=== PATIENT | male | born 1930 | race African-American/Black ===

== ENCOUNTER 2017-07-08 20:34 | Inpatient (IN) | payer MEDICARE, MEDICAID ==
[~2017-07-08] VITALS: Ht 172.7 cm; Wt 51.7 kg
[~2017-07-08 20:34] MED LIST: ASCOL PO; BISA-81 RC; CARB1TAB61 PO; FURO20TA4 PO; LACT10SO6 MT; MULT-1146 PO; NEUTRA PHOS PO; POLY255P2 PO; PRED5TAB48 PO; ZINC220C6 PO; eliquis PO
[2017-07-08] MEDS ORDERED: SODIUM CHLORIDE 0.9% 1000ML BAG (SEPSIS BOLUS) IV ONE (21:15)
[2017-07-08 21:38] LABS: HEMATOCRIT. 33.2 % (42.0-52.0); HEMOGLOBIN. 10.9 g/dL (14.0-18.0); MEAN CORPUSCULAR HEMOGLOBIN 32.8 pg (28.0-32.0); MEAN CORPUSCULAR VOLUME 99.3 fL (80.0-94.0); MEAN PLATELET VOLUME 8.2 fl (7.4-10.4); PLATELET 233 x1000/uL (130-400); RED BLOOD CELL COUNT 3.34 mill/uL (4.7-6.1); RED CELL DISTRIBUTION WIDTH 14.5 % (11.6-14.6)
[2017-07-08 21:45] LABS: INR 1.2; PROTHROMBIN TIME 12.2 sec (9.4-11.6)
[2017-07-08 21:55] LABS: CARBON DIOXIDE 37 mEq/L (21-32); CHLORIDE 96 mEq/L (98-107); TROPONIN I 0.04 ng/mL (0.00-0.04)
[2017-07-08 22:12] LABS: PLATELET ESTIMATE NORMAL
[2017-07-08] MEDS ORDERED: KCL 10MEQ/50ML PREMIX 50 ML IV SCH (22:39)
[2017-07-08] MEDS ORDERED: LEVOFLOXACIN 750MG PREMIX 150 ML IV SCH (22:40)
[2017-07-08] MEDS ORDERED: POTASSIUM CHLORIDE 20MEQ TABLET SR PO SCH (22:40)
[2017-07-08] MEDS ORDERED: POTASSIUM CHLORIDE 20MEQ/PACKET PO ONE (23:30)
[2017-07-09] VITALS (11 sets, daily range): BP systolic 95–136; BP diastolic 50–91
[2017-07-09] MEDS ORDERED: FUROSEMIDE 40MG/4ML VIAL IVP SCH (05:15)
[2017-07-09] MEDS ORDERED: MORPHINE SULFATE 4 MG/ML CPJ (NOT FOR IM USE) IV PRN (05:15)
[2017-07-09] MEDS ORDERED: IPRATROPIUM/ALBUTEROL 0.5-3(2.5)MG/3ML NEB HHN PRN (05:30)
[2017-07-09] MEDS ORDERED: LEVOFLOXACIN 750MG PREMIX 150 ML IV SCH (06:00)
[2017-07-09] MEDS: SODIUM CHL 0.45% + KCL 20MEQ/L 1,000 ML IV SCH (06:43)
[2017-07-09] MEDS: IPRATROPIUM/ALBUTEROL 0.5-3(2.5)MG/3ML NEB HHN SCH ×4 (08:04→20:45)
[2017-07-09 09:36] LABS: HEMATOCRIT. 37.5 % (42.0-52.0); HEMOGLOBIN. 12.5 g/dL (14.0-18.0); MEAN CORPUSCULAR HEMOGLOBIN 33.1 pg (28.0-32.0); MEAN CORPUSCULAR VOLUME 99.1 fL (80.0-94.0); PLATELET 246 x1000/uL (130-400); RED BLOOD CELL COUNT 3.78 mill/uL (4.7-6.1); RED CELL DISTRIBUTION WIDTH 14.4 % (11.6-14.6)
[2017-07-09 10:08] LABS: BG BASE EXCESS 10.6 mmol/L (-2.0-2.0); BG CARBOXYHEMOGLOBIN 0.4 % (0.5-1.5); BG DEOXYHEMOGLOBIN 1.1 % (0.0-5.0); BG FRACTION INSPIRED OXYGEN 28; BG HCO3 ACT 34.9 mmol/L (22.0-26.0); BG METHEMOGLOBIN 0.3 % (0.0-1.5); BG OXYGEN SATURATION 98.9 % (92.0-98.5); BG OXYHEMOGLOBIN 98.2 % (94.0-97.0); BG PCO2 45.4 mmHg (35.0-45.0); BG PH 7.504 (7.350-7.450); BG PO2 139.4 mmHg (75.0-100.0); BG SAMPLE SITE RIGHT BRACHIAL; BG TOTAL HEMOGLOBIN 12.4 g/dL (12.0-18.0); BG VENT MODE NASAL CANNULA
[2017-07-09 10:36] LABS: CARBON DIOXIDE 36 mEq/L (21-32); CHLORIDE 97 mEq/L (98-107)
[2017-07-09] MEDS ORDERED: DEXT 5% WATER + KCL 40MEQ/L 1,000 ML IV SCH (11:00)
[2017-07-09] MEDS ORDERED: POTASSIUM CHLORIDE 20MEQ TABLET SR PO NR (12:40)
[2017-07-09] MEDS: POTASSIUM CHLORIDE INJ 40 MEQ in DEXT 5% WATER 250 ML IV SCH ×2 (13:16→22:54)
[2017-07-09] MEDS ORDERED: BISACODYL 5MG TABLET PO PRN (15:30)
[2017-07-09] MEDS ORDERED: CEFTRIAXONE 1 G PREMIX 50 ML IV SCH (16:30)
[2017-07-09] MEDS: ACETYLCYSTEINE 100MG/ML 10% VIAL 4ML INH SCH (17:13)
[2017-07-09] MEDS: CARBIDOPA/LEVODOPA 25/100MG TABLET PO SCH ×2 (17:25→22:53)
[2017-07-09] MEDS: LEVOFLOXACIN 500MG PREMIX 100 ML IV SCH (17:25)
[2017-07-10] VITALS (12 sets, daily range): BP systolic 97–128; BP diastolic 43–66
[2017-07-10] MEDS: IPRATROPIUM/ALBUTEROL 0.5-3(2.5)MG/3ML NEB HHN SCH ×6 (00:30→21:16)
[2017-07-10] MEDS: ACETYLCYSTEINE 100MG/ML 10% VIAL 4ML INH SCH ×3 (00:31→15:28)
[2017-07-10] MEDS: CARBIDOPA/LEVODOPA 25/100MG TABLET PO SCH ×4 (06:00→23:46)
[2017-07-10] MEDS: ZINC SULFATE 220 MG ( 50 ) CAPSULE PO SCH (08:05)
[2017-07-10] MEDS: ASCORBIC ACID 500 MG TABLET PO SCH (08:06)
[2017-07-10] MEDS: APIXABAN 2.5 MG TABLET PO SCH ×2 (08:06→17:12)
[2017-07-10] MEDS ORDERED: FUROSEMIDE 20MG TABLET PO SCH (09:00)
[2017-07-10] MEDS ORDERED: APIXABAN 2.5 MG TABLET PO SCH (09:00)
[2017-07-10 09:09] LABS: BG BASE EXCESS 1.7 mmol/L (-2.0-2.0); BG CARBOXYHEMOGLOBIN 0.3 % (0.5-1.5); BG FRACTION INSPIRED OXYGEN 32; BG HCO3 ACT 24.9 mmol/L (22.0-26.0); BG METHEMOGLOBIN 0.3 % (0.0-1.5); BG OXYHEMOGLOBIN 98.4 % (94.0-97.0); BG PCO2 33.7 mmHg (35.0-45.0); BG PH 7.486 (7.350-7.450); BG PO2 172.7 mmHg (75.0-100.0); BG SAMPLE SITE RIGHT BRACHIAL; BG TOTAL HEMOGLOBIN 10.1 g/dL (12.0-18.0); BG VENT MODE NASAL CANNULA
[2017-07-10] MEDS ORDERED: CEFTRIAXONE 1,000 MG in DEXTROSE 5% WATER 50 ML IV SCH (10:15)
[2017-07-10 10:16] LABS: PLATELET ESTIMATE NORMAL
[2017-07-10 14:20] LABS: TRIOIODOTHYRONINE TOTAL 0.44 ng/ml (0.60-1.81)
[2017-07-10 14:31] LABS: HEPATITIS B SURFACE ANTIGEN NEGATIVE
[2017-07-10 14:51] LABS: CARBON DIOXIDE 34 mEq/L (21-32); CHLORIDE 99 mEq/L (98-107); HDL CHOLESTEROL 45 mg/dL (40-59); LDL CHOLESTEROL 81 mg/dL (5-100); PREALBUMIN 7.2 mg/dL (20.0-40.0); T4 FREE 2.16 ng/dL (0.76-1.46); TROPONIN I < 0.02 ng/mL (0.00-0.04)
[2017-07-10 14:59] LABS: HEPATITIS B CORE AB IGM NEGATIVE
[2017-07-10 15:00] LABS: HEPATITIS A AB IGM NEGATIVE (NEGATIVE)
[2017-07-10] MEDS: LEVOFLOXACIN 500MG PREMIX 100 ML IV SCH (16:04)
[2017-07-10] MEDS: SODIUM CHL 0.45% + KCL 20MEQ/L 1,000 ML IV SCH (16:09)
[2017-07-10] MEDS: CEFTRIAXONE 1,000 MG in DEXTROSE 5% WATER 50 ML IV SCH (17:13)
[2017-07-10] MEDS ORDERED: POTASSIUM CHLORIDE 20MEQ TABLET SR PO SCH (19:30)
[2017-07-11] VITALS (9 sets, daily range): BP systolic 95–143; BP diastolic 53–76
[2017-07-11] MEDS: IPRATROPIUM/ALBUTEROL 0.5-3(2.5)MG/3ML NEB HHN SCH ×7 (01:11→23:56)
[2017-07-11] MEDS: ACETYLCYSTEINE 100MG/ML 10% VIAL 4ML INH SCH ×4 (01:12→23:56)
[2017-07-11] MEDS: CARBIDOPA/LEVODOPA 25/100MG TABLET PO SCH ×4 (05:00→23:01)
[2017-07-11 06:36] LABS: BASOPHILS % 0.2 % (0.0-2.0); EOSINOPHILS % 0.4 % (0.0-5.0); HEMATOCRIT. 32.7 % (42.0-52.0); HEMOGLOBIN. 11.2 g/dL (14.0-18.0); LYMPHOCYTES % 12.5 % (20.0-50.0); MEAN CORPUSCULAR HEMOGLOBIN 33.8 pg (28.0-32.0); MEAN CORPUSCULAR VOLUME 98.2 fL (80.0-94.0); MEAN PLATELET VOLUME 8.3 fl (7.4-10.4); MONOCYTES % 8.2 % (2.0-8.0); NEUTROPHILS % 78.7 % (40.0-76.0); PLATELET 218 x1000/uL (130-400); RED BLOOD CELL COUNT 3.33 mill/uL (4.7-6.1)
[2017-07-11 08:06] LABS: BG BASE EXCESS 9.2 mmol/L (-2.0-2.0); BG DEOXYHEMOGLOBIN 3.9 % (0.0-5.0); BG FRACTION INSPIRED OXYGEN 21; BG HCO3 ACT 33.3 mmol/L (22.0-26.0); BG METHEMOGLOBIN 0.2 % (0.0-1.5); BG OXYGEN SATURATION 96.1 % (92.0-98.5); BG OXYHEMOGLOBIN 95.9 % (94.0-97.0); BG PCO2 43.7 mmHg (35.0-45.0); BG PO2 79.1 mmHg (75.0-100.0); BG SAMPLE SITE RIGHT BRACHIAL; BG TOTAL HEMOGLOBIN 11.5 g/dL (12.0-18.0); BG VENT MODE ROOM AIR
[2017-07-11] MEDS: ZINC SULFATE 220 MG ( 50 ) CAPSULE PO SCH (09:06)
[2017-07-11] MEDS: ASCORBIC ACID 500 MG TABLET PO SCH (09:06)
[2017-07-11] MEDS: APIXABAN 2.5 MG TABLET PO SCH ×2 (09:06→18:16)
[2017-07-11] MEDS: MICONAZOLE NITRATE 2% OINT 71GM TOP SCH ×2 (09:06→21:35)
[2017-07-11 09:37] LABS: CHLORIDE 101 mEq/L (98-107)
[2017-07-11 09:51] LABS: CARBON DIOXIDE 31 mEq/L (21-32)
[2017-07-11] MEDS ORDERED: POTASSIUM CHLORIDE 20MEQ TABLET SR PO NR (10:30)
[2017-07-11] MEDS: FUROSEMIDE 20MG TABLET PO SCH (12:52)
[2017-07-11] MEDS: CEFTRIAXONE 1,000 MG in DEXTROSE 5% WATER 50 ML IV SCH (17:52)
[2017-07-11] MEDS: LEVOFLOXACIN 250MG PREMIX 50 ML IV SCH (17:53)
[2017-07-12] VITALS (20 sets, daily range): BP systolic 90–144; BP diastolic 50–87
[2017-07-12] MEDS: SODIUM CHL 0.45% + KCL 20MEQ/L 1,000 ML IV SCH (00:55)
[2017-07-12] MEDS: IPRATROPIUM/ALBUTEROL 0.5-3(2.5)MG/3ML NEB HHN SCH ×5 (03:53→21:06)
[2017-07-12 05:43] LABS: BASOPHILS % 0.3 % (0.0-2.0); EOSINOPHILS % 1.3 % (0.0-5.0); HEMATOCRIT. 32.9 % (42.0-52.0); HEMOGLOBIN. 10.9 g/dL (14.0-18.0); LYMPHOCYTES % 18.3 % (20.0-50.0); MEAN CORPUSCULAR HEMOGLOBIN 32.8 pg (28.0-32.0); MEAN CORPUSCULAR VOLUME 98.7 fL (80.0-94.0); MEAN PLATELET VOLUME 8.5 fl (7.4-10.4); MONOCYTES % 11.1 % (2.0-8.0); PLATELET 212 x1000/uL (130-400); RED BLOOD CELL COUNT 3.34 mill/uL (4.7-6.1); RED CELL DISTRIBUTION WIDTH 14.2 % (11.6-14.6)
[2017-07-12] MEDS: CARBIDOPA/LEVODOPA 25/100MG TABLET PO SCH ×3 (05:43→18:58)
[2017-07-12 05:46] LABS: CHLORIDE 101 mEq/L (98-107)
[2017-07-12 05:50] LABS: CARBON DIOXIDE 34 mEq/L (21-32)
[2017-07-12] MEDS ORDERED: LIDOCAINE HCL 1% 20ML VIAL (Pyxis) INJ ONE (07:38)
[2017-07-12] MEDS: ZINC SULFATE 220 MG ( 50 ) CAPSULE PO SCH (08:59)
[2017-07-12] MEDS: ASCORBIC ACID 500 MG TABLET PO SCH (08:59)
[2017-07-12] MEDS: FUROSEMIDE 20MG TABLET PO SCH (08:59)
[2017-07-12] MEDS: APIXABAN 2.5 MG TABLET PO SCH ×2 (08:59→18:58)
[2017-07-12] MEDS: MICONAZOLE NITRATE 2% OINT 71GM TOP SCH ×2 (09:00→21:11)
[2017-07-12] MEDS: ACETYLCYSTEINE 100MG/ML 10% VIAL 4ML INH SCH ×2 (09:49→16:21)
[2017-07-12] MEDS ORDERED: POTASSIUM CHLORIDE 20MEQ TABLET SR PO NR (10:00)
[2017-07-12] MEDS: CEFTRIAXONE 1,000 MG in DEXTROSE 5% WATER 50 ML IV SCH (19:33)
[2017-07-12] MEDS: LEVOFLOXACIN 250MG PREMIX 50 ML IV SCH (21:11)
[2017-07-13] VITALS (15 sets, daily range): BP systolic 93–142; BP diastolic 47–76
[2017-07-13] MEDS: IPRATROPIUM/ALBUTEROL 0.5-3(2.5)MG/3ML NEB HHN SCH ×6 (00:30→20:13)
[2017-07-13] MEDS: ACETYLCYSTEINE 100MG/ML 10% VIAL 4ML INH SCH ×3 (00:31→16:49)
[2017-07-13] MEDS: CARBIDOPA/LEVODOPA 25/100MG TABLET PO SCH ×5 (00:54→23:38)
[2017-07-13] MEDS: ASCORBIC ACID 500 MG TABLET PO SCH (09:05)
[2017-07-13] MEDS: APIXABAN 2.5 MG TABLET PO SCH ×2 (09:05→17:44)
[2017-07-13] MEDS: FUROSEMIDE 20MG TABLET PO SCH (09:05)
[2017-07-13] MEDS: ZINC SULFATE 220 MG ( 50 ) CAPSULE PO SCH (09:06)
[2017-07-13] MEDS: MICONAZOLE NITRATE 2% OINT 71GM TOP SCH ×2 (09:06→21:16)
[2017-07-13] MEDS ORDERED: POTASSIUM CHLORIDE 20MEQ TABLET SR PO NR (09:45)
[2017-07-13] MEDS: SODIUM CHL 0.45% + KCL 20MEQ/L 1,000 ML IV SCH ×2 (12:13→17:43)
[2017-07-13] MEDS: MEGESTROL ACETATE 400 MG/10 ML UDC PO SCH (12:35)
[2017-07-13 13:10] LABS: 25-HYDROXY VITAMIN D3 23 ng/mL (.)
[2017-07-13] MEDS ORDERED: CEFTRIAXONE 1 G PREMIX 50 ML IV SCH (16:30)
[2017-07-13] MEDS: LEVOFLOXACIN 250MG PREMIX 50 ML IV SCH (17:44)
[2017-07-13] MEDS ORDERED: CEFTRIAXONE 1,000 MG in DEXTROSE 5% WATER 50 ML IV SCH (21:00)
[2017-07-14] VITALS (9 sets, daily range): BP systolic 90–131; BP diastolic 50–79
[2017-07-14] MEDS: ACETYLCYSTEINE 100MG/ML 10% VIAL 4ML INH SCH ×2 (00:39→08:53)
[2017-07-14] MEDS: IPRATROPIUM/ALBUTEROL 0.5-3(2.5)MG/3ML NEB HHN SCH ×4 (00:39→12:45)
[2017-07-14] MEDS: CARBIDOPA/LEVODOPA 25/100MG TABLET PO SCH ×2 (06:21→12:41)
[2017-07-14 06:42] LABS: CARBON DIOXIDE 30 mEq/L (21-32); CHLORIDE 103 mEq/L (98-107)
[2017-07-14 06:44] LABS: BASOPHILS % 0.3 % (0.0-2.0); EOSINOPHILS % 2.5 % (0.0-5.0); HEMATOCRIT 34.5 % (42.0-52.0); HEMATOCRIT. 34.5 % (42.0-52.0); HEMOGLOBIN 11.6 g/dL (14.0-18.0); HEMOGLOBIN. 11.6 g/dL (14.0-18.0); LYMPHOCYTES % 18.6 % (20.0-50.0); MEAN CORPUSCULAR HEMOGLOBIN 33.3 pg (28.0-32.0); MEAN PLATELET VOLUME 8.3 fl (7.4-10.4); MONOCYTES % 7.2 % (2.0-8.0); NEUTROPHILS % 71.4 % (40.0-76.0); PLATELET 214 x1000/uL (130-400); RED BLOOD CELL COUNT 3.48 mill/uL (4.7-6.1); RED CELL DISTRIBUTION WIDTH 14.5 % (11.6-14.6)
[2017-07-14] MEDS: MEGESTROL ACETATE 400 MG/10 ML UDC PO SCH (08:33)
[2017-07-14] MEDS: APIXABAN 2.5 MG TABLET PO SCH (08:35)
[2017-07-14] MEDS: ASCORBIC ACID 500 MG TABLET PO SCH (08:35)
[2017-07-14] MEDS: ZINC SULFATE 220 MG ( 50 ) CAPSULE PO SCH (08:35)
[2017-07-14] MEDS: FUROSEMIDE 20MG TABLET PO SCH (08:36)
[2017-07-14] MEDS ORDERED: POTASSIUM CHLORIDE 20MEQ TABLET SR PO NR (09:45)
[2017-07-14] MEDS: MICONAZOLE NITRATE 2% OINT 71GM TOP SCH (10:38)
[2017-07-14] MEDS ORDERED: CEFTRIAXONE 1,000 MG in CEFTRIAXONE 1 G PREMIX 50 ML IV SCH (21:00)
== END 2017-07-14 14:47 | DRG 871 ==
LOC: ER 21:09 → 5WST 23:00 → EDBEDREQTM 23:02 → EDBEDREQSVC 23:02 → EDBEDREQ 23:02 → ENRESERV 07-09 03:23 → 3WST 07-09 11:48
PROVIDERS: ADMIT Internal Medicine Pulmonary Disease; ATTEND Internal Medicine Pulmonary Disease
PROC: 5A09357 Assistance with Respiratory Ventilation, Less than 24 Consecutive Hours, Continuous Positive Airway Pressure (ICD-10-PCS; 2017-07-09)
PROC: 05H933Z Insertion of Infusion Device into Right Brachial Vein, Percutaneous Approach (ICD-10-PCS; principal; 2017-07-12)
PROC: B54MZZA Ultrasonography of Right Upper Extremity Veins, Guidance (ICD-10-PCS; 2017-07-12)
DX: A41.9 Sepsis, unspecified organism (principal); J18.9 Pneumonia, unspecified organism; I26.99 Other pulmonary embolism without acute cor pulmonale; E43 Unspecified severe protein-calorie malnutrition; I50.31 Acute diastolic (congestive) heart failure; J96.92 Respiratory failure, unspecified with hypercapnia; J96.91 Respiratory failure, unspecified with hypoxia; I42.9 Cardiomyopathy, unspecified; E83.51 Hypocalcemia; E44.0 Moderate protein-calorie malnutrition; G20 Parkinson's disease; I50.33 Acute on chronic diastolic (congestive) heart failure; J44.0 Chronic obstructive pulmonary disease with (acute) lower respiratory infection; J44.1 Chronic obstructive pulmonary disease with (acute) exacerbation; I69.354 Hemiplegia and hemiparesis following cerebral infarction affecting left non-dominant side; Z68.1 Body mass index [BMI] 19.9 or less, adult; D63.8 Anemia in other chronic diseases classified elsewhere; F03.90 Unspecified dementia, unspecified severity, without behavioral disturbance, psychotic disturbance, mood disturbance, and anxiety; M19.90 Unspecified osteoarthritis, unspecified site; Z79.01 Long term (current) use of anticoagulants; E87.6 Hypokalemia; Z86.711 Personal history of pulmonary embolism; Z98.2 Presence of cerebrospinal fluid drainage device; Z99.81 Dependence on supplemental oxygen; Z79.899 Other long term (current) drug therapy
CPT/HCPCS: 36415; 36569; 36600; 71045; 76937; 80048; 80053; 80061; 82306; 82375; 82805; 83605; 83690; 83735; 83880; 84134; 84153; 84439; 84443; 84480; 84484; 85025; 85027; 85379; 85610; 86705; 86709; 86803; 87040; 87340; 87804; 93005; 93308; 93970; 94640; 94660; 94664; 96361; 96365; 97163; 97167; 99285; A6261; C1725; C1769; J0696; J1940; J1956; J3480; J3490; J7030; J7040; J7060; J7608; J7620; A4315

== ENCOUNTER 2018-09-02 12:05 | Inpatient (IN) | payer MEDICARE, MEDICAID ==
[~2018-09-02] VITALS: Ht 167.6 cm; Wt 58.3 kg
[~2018-09-02 12:05] MED LIST changes: -FURO20TA4 PO; -NEUTRA PHOS PO; -PRED5TAB48 PO; -ZINC220C6 PO
[2018-09-02] MEDS ORDERED: SODIUM CHLORIDE 0.9% 1000ML BAG (SEPSIS BOLUS) IV ONE (14:30)
[2018-09-02 14:53] LABS: HEMATOCRIT. 39.2 % (42.0-52.0); HEMOGLOBIN. 12.9 g/dL (14.0-18.0); MEAN CORPUSCULAR HEMOGLOBIN 33.7 pg (28.0-32.0); MEAN CORPUSCULAR VOLUME 102.5 fL (80.0-94.0); MEAN PLATELET VOLUME 10.5 fl (7.4-10.4); PLATELET 131 x1000/uL (130-400); RED BLOOD CELL COUNT 3.82 mill/uL (4.7-6.1); RED CELL DISTRIBUTION WIDTH 14.7 % (11.6-14.6)
[2018-09-02 14:58] LABS: CHLORIDE 115 mEq/L (98-107)
[2018-09-02 15:24] LABS: PLATELET ESTIMATE NORMAL
[2018-09-02] MEDS ORDERED: LEVOFLOXACIN 250MG PREMIX 50 ML IV ONE (16:30)
[2018-09-02] MEDS ORDERED: SODIUM CHL 0.9% + KCL 20MEQ/L 1,000 ML IV ONE (16:45)
[2018-09-02 17:14] LABS: CLARITY URINE CLOUDY (CLEAR); COLOR URINE YELLOW (YELLOW); KETONES URINE NEGATIVE (NEGATIVE); LEUKOCYTE ESTERASE URINE 2+ (NEGATIVE); NITRITE URINE POSITIVE (NEGATIVE); OCCULT BLOOD URINE 2+ (NEGATIVE); PH URINE 5.5 (4.5-8.0); PROTEIN URINE 2+ (NEGATIVE); SPECIFIC GRAVITY URINE 1.014 (1.005-1.030)
[2018-09-02] MEDS: AZITHROMYCIN 500 MG in DEXT 5% WATER 250 ML IV SCH (17:43)
[2018-09-03] MEDS ORDERED: SODIUM CHL 0.9% + KCL 20MEQ/L 1,000 ML IV ONE (00:30)
[2018-09-03] MEDS: IPRATROPIUM/ALBUTEROL 0.5-3(2.5)MG/3ML NEB HHN SCH ×2 (03:34→21:38)
[2018-09-03 10:30] LABS: HEMATOCRIT 36.9 % (42.0-52.0); HEMOGLOBIN 12.2 g/dL (14.0-18.0); MEAN CORPUSCULAR HEMOGLOBIN 34.1 pg (28.0-32.0); MEAN CORPUSCULAR VOLUME 103.1 fL (80.0-94.0); PLATELET 116 x1000/uL (130-400); RED BLOOD CELL COUNT 3.58 mill/uL (4.7-6.1); RED CELL DISTRIBUTION WIDTH 15.2 % (11.6-14.6)
[2018-09-03 10:45] LABS: CHLORIDE 130 mEq/L (98-107)
[2018-09-03] MEDS ORDERED: LEVOFLOXACIN 250MG PREMIX 50 ML IV SCH ×2 (14:00→21:30)
[2018-09-03] MEDS: DEXT 5%/0.45% NACL KCL 20MEQ/L 1,000 ML IV SCH ×2 (14:00→21:54)
[2018-09-03] MEDS: AZITHROMYCIN 500 MG in DEXT 5% WATER 250 ML IV SCH (16:30)
[2018-09-03 20:00] VITALS: BP 124/71
[2018-09-03 20:30] VITALS: BP 124/71
[2018-09-03] MEDS ORDERED: ACETAMINOPHEN 325MG TABLET PO PRN (21:45)
[2018-09-03] MEDS ORDERED: POTASSIUM CHLORIDE 20MEQ TABLET SR PO NR (21:53)
[2018-09-03 22:00] VITALS: BP 119/74
[2018-09-03] MEDS: CARBIDOPA/LEVODOPA 25/100MG TABLET CR PO SCH (22:58)
[2018-09-04] VITALS (12 sets, daily range): BP systolic 98–134; BP diastolic 52–72
[2018-09-04] MEDS: IPRATROPIUM/ALBUTEROL 0.5-3(2.5)MG/3ML NEB HHN SCH ×7 (00:46→23:49)
[2018-09-04] MEDS: CARBIDOPA/LEVODOPA 25/100MG TABLET CR PO SCH ×4 (04:04→20:51)
[2018-09-04 06:05] LABS: CHLORIDE 131 mEq/L (98-107)
[2018-09-04 06:09] LABS: HEMATOCRIT. 34.7 % (42.0-52.0); HEMOGLOBIN. 11.7 g/dL (14.0-18.0); PLATELET 125 x1000/uL (130-400); RED BLOOD CELL COUNT 3.43 mill/uL (4.7-6.1); RED CELL DISTRIBUTION WIDTH 15.3 % (11.6-14.6)
[2018-09-04 06:12] LABS: PHOSPHORUS 1.4 mg/dL (2.5-4.9)
[2018-09-04] MEDS: ASCORBIC ACID 500 MG TABLET PO SCH (08:20)
[2018-09-04] MEDS: POTASSIUM CHLORIDE 20MEQ TABLET SR PO SCH ×4 (08:20→20:52)
[2018-09-04] MEDS: MULTIVITAMINS,THER W-MINERALS TABLET PO SCH (08:20)
[2018-09-04] MEDS: ENOXAPARIN 30MG/0.3ML SYR SUBCUT SCH (08:21)
[2018-09-04] MEDS: DEXT 5%/0.45% NACL KCL 20MEQ/L 1,000 ML IV SCH (08:27)
[2018-09-04] MEDS ORDERED: PNEUMOCOCCAL 23-VAL P-SAC VAC 0.5 ML IM ONE (10:00)
[2018-09-04] MEDS ORDERED: INFLUENZA VIRUS VACCINE(AFLURIA) 0.5ML SYR IM ONE (10:00)
[2018-09-04] MEDS: DEXT 5% WATER + KCL 20MEQ/L 1,000 ML IV SCH (10:01)
[2018-09-04] MEDS ORDERED: POTASSIUM PHOS,M-BASIC-D-BASIC 20 MMOL in DEXT 5% WATER 243.3333 ML IV SCH (11:00)
[2018-09-04] MEDS ORDERED: PIPERACILLIN/TAZ 2.25G PREMIX 50 ML IV SCH (11:00)
[2018-09-04] MEDS ORDERED: DIATR MEGLU/DIATRIZOATE SOLN 30ML PO SCH (13:00)
[2018-09-04 15:26] LABS: NUCLEATED RED BLOOD CELLS 1 /100 WBC
[2018-09-04 15:27] LABS: PLATELET ESTIMATE SLIGHTLY DECREASED
[2018-09-04] MEDS ORDERED: DIATR MEGLU/DIATRIZOATE SOLN 120ML ONE (16:59)
[2018-09-04] MEDS: AMPICILLIN SOD/SULBACTAM NA 3 G in SODIUM CHLORIDE 0.9% 100 ML IV SCH (20:52)
[2018-09-05] VITALS (16 sets, daily range): BP systolic 92–131; BP diastolic 46–69
[2018-09-05] MEDS: DEXT 5% WATER + KCL 20MEQ/L 1,000 ML IV SCH ×2 (02:35→13:40)
[2018-09-05] MEDS: CARBIDOPA/LEVODOPA 25/100MG TABLET CR PO SCH ×3 (03:58→16:39)
[2018-09-05] MEDS: IPRATROPIUM/ALBUTEROL 0.5-3(2.5)MG/3ML NEB HHN SCH ×6 (04:09→23:55)
[2018-09-05] MEDS: AMPICILLIN SOD/SULBACTAM NA 3 G in SODIUM CHLORIDE 0.9% 100 ML IV SCH ×2 (06:17→14:00)
[2018-09-05 06:23] LABS: CHLORIDE 132 mEq/L (98-107)
[2018-09-05 06:37] LABS: HEMATOCRIT. 32.9 % (42.0-52.0); HEMOGLOBIN. 10.9 g/dL (14.0-18.0); MEAN CORPUSCULAR HEMOGLOBIN 33.8 pg (28.0-32.0); MEAN CORPUSCULAR VOLUME 102.4 fL (80.0-94.0); MEAN PLATELET VOLUME 10.4 fl (7.4-10.4); PLATELET 114 x1000/uL (130-400); RED BLOOD CELL COUNT 3.22 mill/uL (4.7-6.1)
[2018-09-05 06:41] LABS: PHOSPHORUS 2.2 mg/dL (2.5-4.9)
[2018-09-05] MEDS: ASCORBIC ACID 500 MG TABLET PO SCH (09:56)
[2018-09-05] MEDS: MULTIVITAMINS,THER W-MINERALS TABLET PO SCH (09:56)
[2018-09-05] MEDS: POTASSIUM CHLORIDE 20MEQ TABLET SR PO SCH ×3 (09:56→16:43)
[2018-09-05] MEDS: ENOXAPARIN 30MG/0.3ML SYR SUBCUT SCH (09:56)
[2018-09-05] MEDS ORDERED: POTASSIUM PHOS,M-BASIC-D-BASIC 20 MMOL in DEXT 5% WATER 243.3333 ML IV NR (11:00)
[2018-09-05 13:59] LABS: ATYPICAL LYMPHOCYTES 1
[2018-09-05 14:00] LABS: PLATELET ESTIMATE SLIGHTLY DECREASED
[2018-09-06] VITALS (18 sets, daily range): BP systolic 99–140; BP diastolic 47–74
[2018-09-06] MEDS: CARBIDOPA/LEVODOPA 25/100MG TABLET CR PO SCH ×2 (01:15→04:00)
[2018-09-06] MEDS: AMPICILLIN SOD/SULBACTAM NA 3 G in SODIUM CHLORIDE 0.9% 100 ML IV SCH ×3 (01:33→13:44)
[2018-09-06] MEDS: IPRATROPIUM/ALBUTEROL 0.5-3(2.5)MG/3ML NEB HHN SCH ×5 (03:33→20:10)
[2018-09-06] MEDS: DEXT 5% WATER + KCL 20MEQ/L 1,000 ML IV SCH ×2 (03:55→18:16)
[2018-09-06 06:56] LABS: HEMATOCRIT. 31.1 % (42.0-52.0); HEMOGLOBIN. 10.4 g/dL (14.0-18.0); MEAN CORPUSCULAR HEMOGLOBIN 33.8 pg (28.0-32.0); MEAN CORPUSCULAR VOLUME 101.4 fL (80.0-94.0); MEAN PLATELET VOLUME 10.7 fl (7.4-10.4); PLATELET 113 x1000/uL (130-400); RED BLOOD CELL COUNT 3.07 mill/uL (4.7-6.1); RED CELL DISTRIBUTION WIDTH 15.7 % (11.6-14.6)
[2018-09-06 07:07] LABS: CHLORIDE 128 mEq/L (98-107)
[2018-09-06 07:12] LABS: PHOSPHORUS 1.9 mg/dL (2.5-4.9)
[2018-09-06] MEDS: MULTIVITAMINS,THER W-MINERALS TABLET PO SCH (08:51)
[2018-09-06] MEDS: ASCORBIC ACID 500 MG TABLET PO SCH (08:51)
[2018-09-06] MEDS: POTASSIUM CHLORIDE 20MEQ/PACKET PO SCH ×3 (08:54→17:12)
[2018-09-06] MEDS: ENOXAPARIN 30MG/0.3ML SYR SUBCUT SCH (09:14)
[2018-09-06] MEDS ORDERED: POTASSIUM PHOS,M-BASIC-D-BASIC 20 MMOL in DEXT 5% WATER 250 ML IV SCH (11:30)
[2018-09-06] MEDS: CARBIDOPA/LEVODOPA 25/100MG TABLET PO SCH ×2 (11:44→17:13)
[2018-09-06 12:34] LABS: PLATELET ESTIMATE SLIGHTLY DECREASED
[2018-09-06] MEDS: PIPERACILLIN/TAZ 2.25G PREMIX 50 ML IV SCH (17:35)
[2018-09-06] MEDS ORDERED: PIPERACILLIN/TAZOBACTAM 3.375 G in DEXT 5% WATER 100 ML IV SCH (18:00)
[2018-09-06] MEDS: ENTACAPONE 200MG TABLET PO SCH (18:20)
[2018-09-06 21:35] LABS: T4 FREE 1.84 ng/dL (0.76-1.46)
[2018-09-06 21:42] LABS: FOLIC ACID (FOLATE) SERUM 15.5 ng/mL (>5.38)
[2018-09-07] VITALS (20 sets, daily range): BP systolic 82–129; BP diastolic 43–86
[2018-09-07] MEDS: IPRATROPIUM/ALBUTEROL 0.5-3(2.5)MG/3ML NEB HHN SCH ×6 (00:36→20:27)
[2018-09-07] MEDS: CARBIDOPA/LEVODOPA 25/100MG TABLET PO SCH ×7 (01:36→21:08)
[2018-09-07] MEDS: ENTACAPONE 200MG TABLET PO SCH ×4 (01:38→17:02)
[2018-09-07] MEDS: PIPERACILLIN/TAZ 2.25G PREMIX 50 ML IV SCH ×3 (01:38→12:32)
[2018-09-07] MEDS: DEXT 5% WATER + KCL 20MEQ/L 1,000 ML IV SCH ×2 (06:41→21:08)
[2018-09-07 06:44] LABS: HEMATOCRIT. 35.9 % (42.0-52.0); HEMOGLOBIN. 11.7 g/dL (14.0-18.0); MEAN CORPUSCULAR HEMOGLOBIN 33.6 pg (28.0-32.0); MEAN CORPUSCULAR VOLUME 103.2 fL (80.0-94.0); MEAN PLATELET VOLUME 10.8 fl (7.4-10.4); PLATELET 113 x1000/uL (130-400); RED BLOOD CELL COUNT 3.47 mill/uL (4.7-6.1); RED CELL DISTRIBUTION WIDTH 15.8 % (11.6-14.6)
[2018-09-07 06:56] LABS: CHLORIDE 125 mEq/L (98-107)
[2018-09-07 07:15] LABS: PHOSPHORUS 2.1 mg/dL (2.5-4.9)
[2018-09-07] MEDS: MULTIVITAMINS,THER W-MINERALS TABLET PO SCH (08:39)
[2018-09-07] MEDS: ASCORBIC ACID 500 MG TABLET PO SCH (08:39)
[2018-09-07] MEDS: POTASSIUM CHLORIDE 20MEQ/PACKET PO SCH ×3 (08:39→17:02)
[2018-09-07] MEDS: ENOXAPARIN 40MG/0.4ML SYR SUBCUT SCH (08:40)
[2018-09-07] MEDS ORDERED: MEROPENEM 1,000 MG in SODIUM CHLORIDE 0.9% 100 ML IV SCH (15:30)
[2018-09-07] MEDS: MEROPENEM 1,000 MG in SODIUM CHLORIDE 0.9% 100 ML IV SCH (17:02)
[2018-09-07] MEDS: METRONIDAZOLE 500 MG PREMIX 100 ML IV SCH (21:09)
[2018-09-08] VITALS (14 sets, daily range): BP systolic 85–114; BP diastolic 25–67
[2018-09-08] MEDS: IPRATROPIUM/ALBUTEROL 0.5-3(2.5)MG/3ML NEB HHN SCH ×6 (00:14→20:15)
[2018-09-08] MEDS: ENTACAPONE 200MG TABLET PO SCH ×4 (00:58→17:55)
[2018-09-08] MEDS: CARBIDOPA/LEVODOPA 25/100MG TABLET PO SCH ×6 (00:58→22:44)
[2018-09-08] MEDS: MEROPENEM 1,000 MG in SODIUM CHLORIDE 0.9% 100 ML IV SCH ×2 (05:16→16:11)
[2018-09-08 06:47] LABS: HEMATOCRIT. 27.5 % (42.0-52.0); HEMOGLOBIN. 8.9 g/dL (14.0-18.0); MEAN CORPUSCULAR HEMOGLOBIN 33.6 pg (28.0-32.0); MEAN CORPUSCULAR VOLUME 103.6 fL (80.0-94.0); MEAN PLATELET VOLUME 11.6 fl (7.4-10.4); PLATELET 102 x1000/uL (130-400); RED BLOOD CELL COUNT 2.66 mill/uL (4.7-6.1); RED CELL DISTRIBUTION WIDTH 15.4 % (11.6-14.6)
[2018-09-08 07:34] LABS: CHLORIDE 124 mEq/L (98-107)
[2018-09-08 07:49] LABS: PHOSPHORUS 2.2 mg/dL (2.5-4.9)
[2018-09-08] MEDS: DEXT 5% WATER + KCL 20MEQ/L 1,000 ML IV SCH ×2 (08:45→22:43)
[2018-09-08] MEDS: METRONIDAZOLE 500 MG PREMIX 100 ML IV SCH ×2 (08:45→20:36)
[2018-09-08] MEDS: POTASSIUM CHLORIDE 20MEQ/PACKET PO SCH ×3 (08:46→17:55)
[2018-09-08] MEDS: MULTIVITAMINS,THER W-MINERALS TABLET PO SCH (08:46)
[2018-09-08] MEDS: ENOXAPARIN 40MG/0.4ML SYR SUBCUT SCH (08:46)
[2018-09-08] MEDS: ASCORBIC ACID 500 MG TABLET PO SCH (08:46)
[2018-09-08 10:34] LABS: PLATELET ESTIMATE DECREASED
[2018-09-08 13:40] LABS: PLATELET ESTIMATE DECREASED
[2018-09-08] MEDS ORDERED: MAGNESIUM HYDROXIDE 400MG/5ML 30ML UDC PO SCH (14:00)
[2018-09-08] MEDS ORDERED: LACTULOSE 20G/30ML UDC PO SCH (14:00)
[2018-09-08] MEDS ORDERED: POTASSIUM PHOS,M-BASIC-D-BASIC 20 MMOL in DEXT 5% WATER 243.3333 ML IV SCH (15:00)
[2018-09-09] VITALS (11 sets, daily range): BP systolic 88–105; BP diastolic 46–74
[2018-09-09] MEDS: CARBIDOPA/LEVODOPA 25/100MG TABLET PO SCH ×6 (00:31→20:58)
[2018-09-09] MEDS: ENTACAPONE 200MG TABLET PO SCH ×5 (00:31→23:59)
[2018-09-09] MEDS: IPRATROPIUM/ALBUTEROL 0.5-3(2.5)MG/3ML NEB HHN SCH ×6 (02:32→20:22)
[2018-09-09] MEDS: MEROPENEM 1,000 MG in SODIUM CHLORIDE 0.9% 100 ML IV SCH ×2 (05:32→18:43)
[2018-09-09 06:57] LABS: CHLORIDE 121 mEq/L (98-107)
[2018-09-09] MEDS ORDERED: SODIUM CHLORIDE 0.9% 500 ML IV ONE (07:30)
[2018-09-09 07:31] LABS: HEMATOCRIT. 28.1 % (42.0-52.0); HEMOGLOBIN. 9.3 g/dL (14.0-18.0); MEAN CORPUSCULAR HEMOGLOBIN 34.3 pg (28.0-32.0); MEAN CORPUSCULAR VOLUME 103.9 fL (80.0-94.0); MEAN PLATELET VOLUME 11.7 fl (7.4-10.4); PHOSPHORUS 2.3 mg/dL (2.5-4.9); PLATELET 116 x1000/uL (130-400); RED BLOOD CELL COUNT 2.71 mill/uL (4.7-6.1); RED CELL DISTRIBUTION WIDTH 15.3 % (11.6-14.6); TOTAL IRON BINDING CAPACITY 202 ug/dL (250-450)
[2018-09-09] MEDS: POTASSIUM CHLORIDE 20MEQ/PACKET PO SCH ×2 (08:16→08:28)
[2018-09-09] MEDS: ASCORBIC ACID 500 MG TABLET PO SCH (08:17)
[2018-09-09] MEDS: ENOXAPARIN 40MG/0.4ML SYR SUBCUT SCH (08:19)
[2018-09-09] MEDS: MULTIVITAMINS,THER W-MINERALS TABLET PO SCH (08:21)
[2018-09-09] MEDS: METRONIDAZOLE 500 MG PREMIX 100 ML IV SCH ×2 (08:31→20:58)
[2018-09-09] MEDS: DEXTROSE 5% WATER 1,000 ML IV SCH (09:41)
[2018-09-09] MEDS: FERROUS SULFATE 300MG/5ML UDC GT SCH ×2 (09:41→18:04)
[2018-09-09 13:03] LABS: PLATELET ESTIMATE DECREASED
[2018-09-10] VITALS (11 sets, daily range): BP systolic 90–109; BP diastolic 44–60
[2018-09-10] MEDS: IPRATROPIUM/ALBUTEROL 0.5-3(2.5)MG/3ML NEB HHN SCH ×6 (05:10→23:53)
[2018-09-10] MEDS: ENTACAPONE 200MG TABLET PO SCH ×3 (05:16→17:43)
[2018-09-10] MEDS: CARBIDOPA/LEVODOPA 25/100MG TABLET PO SCH ×6 (05:16→21:28)
[2018-09-10] MEDS: MEROPENEM 1,000 MG in SODIUM CHLORIDE 0.9% 100 ML IV SCH ×2 (05:17→17:43)
[2018-09-10 06:22] LABS: HEMATOCRIT. 27.6 % (42.0-52.0); MEAN CORPUSCULAR HEMOGLOBIN 34.1 pg (28.0-32.0); MEAN CORPUSCULAR VOLUME 104.5 fL (80.0-94.0); MEAN PLATELET VOLUME 11.3 fl (7.4-10.4); PLATELET 140 x1000/uL (130-400); RED BLOOD CELL COUNT 2.64 mill/uL (4.7-6.1); RED CELL DISTRIBUTION WIDTH 15.4 % (11.6-14.6)
[2018-09-10 07:58] LABS: CHLORIDE 115 mEq/L (98-107)
[2018-09-10] MEDS: MULTIVITAMINS,THER W-MINERALS TABLET PO SCH (08:56)
[2018-09-10] MEDS: ASCORBIC ACID 500 MG TABLET PO SCH (08:56)
[2018-09-10] MEDS: FERROUS SULFATE 300MG/5ML UDC GT SCH ×2 (08:56→17:43)
[2018-09-10] MEDS: ENOXAPARIN 40MG/0.4ML SYR SUBCUT SCH (08:56)
[2018-09-10] MEDS: METRONIDAZOLE 500 MG PREMIX 100 ML IV SCH ×2 (09:53→21:41)
[2018-09-10 10:42] LABS: PLATELET ESTIMATE NORMAL
[2018-09-10] MEDS ORDERED: POTASSIUM PHOS,M-BASIC-D-BASIC 20 MMOL in DEXT 5% WATER 243.3333 ML IV SCH (11:00)
[2018-09-10] MEDS: DEXTROSE 5% WATER 1,000 ML IV SCH ×2 (15:55)
[2018-09-11] VITALS (13 sets, daily range): BP systolic 82–116; BP diastolic 41–74
[2018-09-11] MEDS: CARBIDOPA/LEVODOPA 25/100MG TABLET PO SCH ×6 (00:38→21:10)
[2018-09-11] MEDS: ENTACAPONE 200MG TABLET PO SCH ×4 (00:38→17:42)
[2018-09-11] MEDS: IPRATROPIUM/ALBUTEROL 0.5-3(2.5)MG/3ML NEB HHN SCH ×5 (04:21→21:35)
[2018-09-11] MEDS: MEROPENEM 1,000 MG in SODIUM CHLORIDE 0.9% 100 ML IV SCH ×2 (04:25→16:47)
[2018-09-11] MEDS: DEXTROSE 5% WATER 1,000 ML IV SCH (04:32)
[2018-09-11 06:59] LABS: INR 1.1; PROTHROMBIN TIME 10.6 sec (9.1-11.1)
[2018-09-11 07:07] LABS: HEMATOCRIT. 27.7 % (42.0-52.0); MEAN CORPUSCULAR HEMOGLOBIN 33.6 pg (28.0-32.0); MEAN PLATELET VOLUME 10.9 fl (7.4-10.4); PLATELET 175 x1000/uL (130-400); RED BLOOD CELL COUNT 2.66 mill/uL (4.7-6.1); RED CELL DISTRIBUTION WIDTH 15.2 % (11.6-14.6)
[2018-09-11 07:37] LABS: CHLORIDE 110 mEq/L (98-107)
[2018-09-11 07:44] LABS: PHOSPHORUS 2.1 mg/dL (2.5-4.9)
[2018-09-11] MEDS: ASCORBIC ACID 500 MG TABLET PO SCH (09:26)
[2018-09-11] MEDS: FERROUS SULFATE 300MG/5ML UDC GT SCH ×2 (09:26→16:52)
[2018-09-11] MEDS: MULTIVITAMINS,THER W-MINERALS TABLET PO SCH (09:26)
[2018-09-11] MEDS: ENOXAPARIN 40MG/0.4ML SYR SUBCUT SCH (09:26)
[2018-09-11] MEDS: METRONIDAZOLE 500 MG PREMIX 100 ML IV SCH ×2 (09:28→21:10)
[2018-09-11 17:22] LABS: PLATELET ESTIMATE NORMAL
[2018-09-12] VITALS (11 sets, daily range): BP systolic 82–105; BP diastolic 39–60
[2018-09-12] MEDS: CARBIDOPA/LEVODOPA 25/100MG TABLET PO SCH ×6 (00:17→20:55)
[2018-09-12] MEDS: ENTACAPONE 200MG TABLET PO SCH ×4 (00:17→17:32)
[2018-09-12] MEDS: IPRATROPIUM/ALBUTEROL 0.5-3(2.5)MG/3ML NEB HHN SCH ×5 (01:25→20:34)
[2018-09-12] MEDS: MEROPENEM 1,000 MG in SODIUM CHLORIDE 0.9% 100 ML IV SCH (06:01)
[2018-09-12 07:17] LABS: BASOPHILS % 0.2 % (0.0-2.0); EOSINOPHILS % 0.3 % (0.0-5.0); HEMATOCRIT. 26.7 % (42.0-52.0); HEMOGLOBIN. 8.8 g/dL (14.0-18.0); LYMPHOCYTES % 9.2 % (20.0-50.0); MEAN CORPUSCULAR HEMOGLOBIN 33.7 pg (28.0-32.0); MEAN CORPUSCULAR VOLUME 102.4 fL (80.0-94.0); MEAN PLATELET VOLUME 10.8 fl (7.4-10.4); MONOCYTES % 4.9 % (2.0-8.0); NEUTROPHILS % 85.4 % (40.0-76.0); PLATELET 209 x1000/uL (130-400); RED CELL DISTRIBUTION WIDTH 14.7 % (11.6-14.6)
[2018-09-12 07:40] LABS: PROTHROMBIN TIME 10.5 sec (9.1-11.1)
[2018-09-12 07:48] LABS: CHLORIDE 110 mEq/L (98-107)
[2018-09-12] MEDS: METRONIDAZOLE 500 MG PREMIX 100 ML IV SCH (09:57)
[2018-09-12] MEDS ORDERED: FENTANYL CITRATE/PF 50MCG/ML 2ML VIAL ONE (11:21)
[2018-09-12] MEDS ORDERED: MIDAZOLAM HCL 5 MG/5 ML VIAL ONE (11:21)
[2018-09-12] MEDS ORDERED: MIDAZOLAM HCL 5 MG/5 ML VIAL IV PRN (11:26)
[2018-09-12] MEDS: MULTIVITAMINS,THER W-MINERALS TABLET PO SCH (15:17)
[2018-09-12] MEDS: FERROUS SULFATE 300MG/5ML UDC GT SCH ×2 (15:17→17:32)
[2018-09-12] MEDS: ASCORBIC ACID 500 MG TABLET PO SCH (15:17)
[2018-09-12] MEDS ORDERED: SODIUM CHLORIDE 0.9% 10ML VIAL ONE (15:18)
[2018-09-12] MEDS ORDERED: SIMETHICONE 40 MG/0.6 ML 30ML ONE (15:18)
[2018-09-12] MEDS: METRONIDAZOLE 500MG TABLET PO SCH (20:55)
[2018-09-12] MEDS: SULFAMETHOXAZOLE/TRIMETHOPRIM 800/160MG TABLET PO SCH (20:55)
[2018-09-12] MEDS: OMEPRAZOLE 20MG CAPSULE EXTENDED RELEASE PO SCH (20:55)
[2018-09-13] VITALS (12 sets, daily range): BP systolic 83–112; BP diastolic 17–57
[2018-09-13] MEDS: IPRATROPIUM/ALBUTEROL 0.5-3(2.5)MG/3ML NEB HHN SCH ×6 (00:34→20:20)
[2018-09-13] MEDS: CARBIDOPA/LEVODOPA 25/100MG TABLET PO SCH ×7 (06:11→23:30)
[2018-09-13] MEDS: DEXTROSE 5% WATER 1,000 ML IV SCH ×3 (06:12→06:15)
[2018-09-13] MEDS: ENTACAPONE 200MG TABLET PO SCH ×5 (06:12→23:30)
[2018-09-13 06:17] LABS: HEMATOCRIT. 25.4 % (42.0-52.0); HEMOGLOBIN. 8.3 g/dL (14.0-18.0); MEAN CORPUSCULAR HEMOGLOBIN 34.2 pg (28.0-32.0); MEAN CORPUSCULAR VOLUME 104.1 fL (80.0-94.0); MEAN PLATELET VOLUME 9.9 fl (7.4-10.4); PLATELET 244 x1000/uL (130-400); RED BLOOD CELL COUNT 2.44 mill/uL (4.7-6.1); RED CELL DISTRIBUTION WIDTH 14.9 % (11.6-14.6)
[2018-09-13 06:34] LABS: CHLORIDE 105 mEq/L (98-107)
[2018-09-13] MEDS: FERROUS SULFATE 300MG/5ML UDC GT SCH ×2 (08:17→17:13)
[2018-09-13] MEDS: OMEPRAZOLE 20MG CAPSULE EXTENDED RELEASE PO SCH ×2 (08:17→21:15)
[2018-09-13] MEDS: SULFAMETHOXAZOLE/TRIMETHOPRIM 800/160MG TABLET PO SCH ×2 (08:17→21:15)
[2018-09-13] MEDS: ASCORBIC ACID 500 MG TABLET PO SCH (08:17)
[2018-09-13] MEDS: MULTIVITAMINS,THER W-MINERALS TABLET PO SCH (08:18)
[2018-09-13] MEDS: METRONIDAZOLE 500MG TABLET PO SCH ×2 (08:18→21:15)
[2018-09-13 10:35] LABS: PLATELET ESTIMATE NORMAL
[2018-09-13] MEDS ORDERED: SORBITOL 70% SOLN 30ML PO NR (14:00)
[2018-09-13] MEDS: DOCUSATE SODIUM SUGAR FREE 100MG/10ML UDC NG SCH (15:25)
[2018-09-14] VITALS (10 sets, daily range): BP systolic 91–112; BP diastolic 37–68
[2018-09-14] MEDS: IPRATROPIUM/ALBUTEROL 0.5-3(2.5)MG/3ML NEB HHN SCH ×4 (00:46→12:41)
[2018-09-14] MEDS: CARBIDOPA/LEVODOPA 25/100MG TABLET PO SCH ×3 (05:47→11:52)
[2018-09-14] MEDS: ENTACAPONE 200MG TABLET PO SCH ×2 (05:47→11:52)
[2018-09-14 07:06] LABS: BASOPHILS % 1.1 % (0.0-2.0); EOSINOPHILS % 0.4 % (0.0-5.0); HEMATOCRIT. 24.4 % (42.0-52.0); HEMOGLOBIN. 8.3 g/dL (14.0-18.0); LYMPHOCYTES % 7.7 % (20.0-50.0); MEAN CORPUSCULAR HEMOGLOBIN 34.5 pg (28.0-32.0); MEAN CORPUSCULAR VOLUME 101.1 fL (80.0-94.0); MEAN PLATELET VOLUME 9.8 fl (7.4-10.4); MONOCYTES % 7.7 % (2.0-8.0); NEUTROPHILS % 83.1 % (40.0-76.0); PLATELET 254 x1000/uL (130-400); RED BLOOD CELL COUNT 2.41 mill/uL (4.7-6.1); RED CELL DISTRIBUTION WIDTH 14.8 % (11.6-14.6)
[2018-09-14 07:09] LABS: CHLORIDE 104 mEq/L (98-107)
[2018-09-14 07:14] LABS: PHOSPHORUS 1.3 mg/dL (2.5-4.9)
[2018-09-14] MEDS: SULFAMETHOXAZOLE/TRIMETHOPRIM 800/160MG TABLET PO SCH (09:22)
[2018-09-14] MEDS: METRONIDAZOLE 500MG TABLET PO SCH (09:22)
[2018-09-14] MEDS: MULTIVITAMINS,THER W-MINERALS TABLET PO SCH (09:23)
[2018-09-14] MEDS: FERROUS SULFATE 300MG/5ML UDC GT SCH (09:23)
[2018-09-14] MEDS: ASCORBIC ACID 500 MG TABLET PO SCH (09:23)
[2018-09-14] MEDS: OMEPRAZOLE 20MG CAPSULE EXTENDED RELEASE PO SCH (09:23)
[2018-09-14] MEDS: DOCUSATE SODIUM SUGAR FREE 100MG/10ML UDC NG SCH (11:52)
== END 2018-09-14 16:05 | DRG 871 ==
LOC: ER 12:05 → EDBEDREQSVC 17:49 → EDBEDREQ 17:49 → 5EST 09-03 17:20 → ENRESERV 09-03 17:35
PROVIDERS: ADMIT Internal Medicine; ATTEND Internal Medicine
PROC: 05HM33Z Insertion of Infusion Device into Right Internal Jugular Vein, Percutaneous Approach (ICD-10-PCS; principal; 2018-09-04)
PROC: B543ZZA Ultrasonography of Right Jugular Veins, Guidance (ICD-10-PCS; 2018-09-04)
PROC: 0DH63UZ Insertion of Feeding Device into Stomach, Percutaneous Approach (ICD-10-PCS; 2018-09-12)
DX: A41.51 Sepsis due to Escherichia coli [E. coli] (principal); G93.41 Metabolic encephalopathy; E43 Unspecified severe protein-calorie malnutrition; J69.0 Pneumonitis due to inhalation of food and vomit; N17.9 Acute kidney failure, unspecified; N39.0 Urinary tract infection, site not specified; E87.0 Hyperosmolality and hypernatremia; K22.10 Ulcer of esophagus without bleeding; G91.2 (Idiopathic) normal pressure hydrocephalus; J98.11 Atelectasis; K56.0 Paralytic ileus; K59.39 Other megacolon; R64 Cachexia; E83.52 Hypercalcemia; I10 Essential (primary) hypertension; E86.0 Dehydration; E87.6 Hypokalemia; G20 Parkinson's disease; R26.9 Unspecified abnormalities of gait and mobility; K59.00 Constipation, unspecified; Y95 Nosocomial condition; D53.9 Nutritional anemia, unspecified; E53.8 Deficiency of other specified B group vitamins; F02.80 Dementia in other diseases classified elsewhere, unspecified severity, without behavioral disturbance, psychotic disturbance, mood disturbance, and anxiety; J44.9 Chronic obstructive pulmonary disease, unspecified; K44.9 Diaphragmatic hernia without obstruction or gangrene; K66.8 Other specified disorders of peritoneum; R62.7 Adult failure to thrive; Z68.20 Body mass index [BMI] 20.0-20.9, adult; Z91.19 Patient's noncompliance with other medical treatment and regimen; Z98.2 Presence of cerebrospinal fluid drainage device; Z79.899 Other long term (current) drug therapy
CPT/HCPCS: 36415; 36556; 36569; 70551; 71045; 72040; 74018; 74176; 76937; 80048; 82140; 82270; 82607; 82746; 82962; 83036; 83540; 83550; 83605; 83735; 83880; 84100; 84134; 84439; 84443; 84481; 85027; 85651; 87070; 87077; 87186; 90686; 90732; 93005; 93306; 93970; 94640; 96365; 96366; 96368; 97162; 97166; 99152; 99285; A6261; C1725; C1752; J0295; J0456; J1650; J1956; J2185; J2250; J2543; J3010; J3480; J3490; J7030; J7040; J7050; J7060; J7070; J7620; Q9963; G0500